=== PATIENT | female | born 1980 | race Caucasian/White ===

== ENCOUNTER → 2019-09-20 14:28 | Outpatient (REF) | payer OTHER, SELFPAY | LOC: ANHLAB 14:28 | PROVIDERS: PCP Internal Medicine; Visit Provider Nurse Practitioner Family | DX: D22.0 Melanocytic nevi of lip (principal); D22.39 Melanocytic nevi of other parts of face | CPT/HCPCS: 88305 ==

== ENCOUNTER 2022-06-16 13:07 | Emergency (ER) | payer OTHER, SELFPAY ==
[2022-06-16 13:19] VITALS: BP 140/80; PULSE 100; RESP 18; TEMP 36.6; O2SAT 100
--- NOTE | 2022-06-16 13:23 | ED.EAR ---
HPI - Ear Problem General Chief complaint: Ear Stated complaint: sorethroat,bilateral ear discomfort Time Seen by Provider: 06/16/22 13:24 Source: patient Mode of arrival: ambulatory Limitations: no limitations History of Present Illness HPI Narrative: 41 yo F presents with c/o sinus pressure, nasal congestion for 2 to 3 days. Afebrile. Not taking any OTC meds to treat symptoms. Had nose bleed yesterday while in shower and today blew nose and blood clot came out. States she has never had nose bleed so concerned her. pt is well appearing. afebrile. just have a lot of facial pain . All systems reviewed and negative except as noted above. Related Data Home Medications Medication Instructions Recorded Confirmed multivitamin 1 tablet PO DAILY 06/15/19 06/16/22 Allergies Allergy/AdvReac Type Severity Reaction Status Date / Time No Known Allergies Allergy Verified 06/16/22 13:10 Review of Systems Review of Systems: CONSTITUTIONAL: Denies fever, chills, or sweats. EYES: Denies visual changes, redness, or discharge. ENT: reports rhinorrhea, congestion, sinus pressure, sinus headache. Denies sore throat, or otalgia. CARDIOVASCULAR: Denies chest pain, palpitations, or edema. RESPIRATORY: Denies cough or dyspnea. GASTROINTESTINAL: Denies abdominal pain, nausea, vomiting, or diarrhea. GENITOURINARY: Denies dysuria or hematuria. SKIN: Denies rash or itching. MUSCULOSKELETAL: Denies back pain, joint pain, or myalgia. NEUROLOGIC: Denies headache, numbness, or weakness. PSYCHIATRIC: Denies anxiety or depression. All other systems reviewed are negative, except as documented in HPI. [facility] Past Medical History Medical History (Updated 06/16/22 @ 13:35 by Shira Espino NP) History of keloid of skin History of pulmonary embolism 2006 Family History Family History Father Hypertension Mother Cerebrovascular accident Social History Social History Smoking status: Never smoker Alcohol intake: current Substance use: never Comments At time of signature, agree with nursing past medical, surgical, social and family history. There is no relevant family history pertinent to the presenting complaint. Exam Narrative: GENERAL: This is a well-nourished, well-developed patient, in no apparent distress. patient is well-appearing. HEAD: normocephalic, atraumatic. EYES: PERRL. Sclera clear/white. Vision is grossly intact. EARS: External ears normal, auditory canals clear and without drainage, TMs normal without perforation. Hearing grossly intact. NOSE: External nose normal with no obvious nasal discharge, nares without redness, no rhinorrhea. THROAT: Mucous membranes moist, posterior pharynx clear. NECK: Neck supple, non-tender without lymphadenopathy, masses or thyromegaly. CARDIOVASCULAR: Regular rate and rhythm without murmurs, gallops, or rubs. RESPIRATORY: Clear to auscultation. Breath sounds equal bilaterally. No wheezes, rales, or rhonchi. SKIN: warm, Dry, intact with no suspicious lesions or rash, good texture and turgor. NEURO: awake, alert, and oriented to person, place and time. There were no obvious focal neurologic abnormalities. EXTREMITIES: No joint tenderness, effusion, or edema noted. Course Course Level of Care: Express Care Visit Vital Signs Vital signs: Vital Signs Temperature 36.6 C 06/16/22 13:19 Pulse Rate 100 06/16/22 13:19 Respiratory Rate 18 06/16/22 13:19 Blood Pressure 140/80 06/16/22 13:19 Pulse Oximetry 100 06/16/22 13:19 Oxygen Delivery Room Air 06/16/22 13:19 Temperature 36.6 C 06/16/22 13:19 Pulse Rate 100 06/16/22 13:19 Respiratory Rate 18 06/16/22 13:19 Blood Pressure 140/80 06/16/22 13:19 Pulse Oximetry 100 06/16/22 13:19 Oxygen Delivery Room Air 06/16/22 13:19 Reviewed Medical Decision Making MDM Narrati
== END 2022-06-16 13:40 | disposition home or self-care (01) ==
PROVIDERS: Emergency Provider Nurse Practitioner Family
DX: J01.90 Acute sinusitis, unspecified (principal); Z86.711 Personal history of pulmonary embolism
CPT/HCPCS: 99213; G0463

== ENCOUNTER 2022-06-30 08:02 | Emergency (ER) | payer OTHER, SELFPAY ==
[2022-06-30 08:15] VITALS: BP 130/71; PULSE 98; RESP 18; TEMP 36.1; O2SAT 100
--- NOTE | 2022-06-30 08:16 | ED.URI ---
HPI - URI/Sore Throat General Chief Complaint: Upper Respiratory Infection Stated Complaint: sorethroat Time Seen by Provider: 06/30/22 08:16 History of Present Illness HPI Narrative: Year old female presented for complaint of sore throat worsening since yesterday. Endorses painful swallow and headache. She denies shortness of breath, wheezing, nausea, vomiting, fevers or chills. She is maintaining her secretions. Endorses her daughter tested positive for strep 3 days ago. Not taking anything for symptoms. Related Data Home Medications Medication Instructions Recorded Confirmed multivitamin 1 tablet PO DAILY 06/15/19 06/30/22 Allergies Allergy/AdvReac Type Severity Reaction Status Date / Time No Known Allergies Allergy Verified 06/30/22 08:10 Review of Systems Review of Systems: CONSTITUTIONAL: Denies body aches, fever, chills, or sweats. EYES: Denies visual changes, redness, or discharge. ENT: Denies rhinorrhea, congestion, or otalgia. CARDIOVASCULAR: Denies chest pain, palpitations, or edema. RESPIRATORY: Denies dyspnea. GASTROINTESTINAL: Denies abdominal pain, nausea, vomiting, or diarrhea. SKIN: Denies rash, itching, or wounds. MUSCULOSKELETAL: Denies back pain, joint pain, or myalgia. [facility] Past Medical History Medical History (Updated 06/30/22 @ 08:24 by Monique Farley APRN) History of keloid of skin History of pulmonary embolism 2006 Family History Family History Father Hypertension Mother Cerebrovascular accident Social History Social History Smoking status: Never smoker Alcohol intake: current Substance use: never Exam Narrative: GENERAL: Mildly ill-appearing, no acute distress. EYES: conjunctivae clear ENT: Mucous membranes moist. TM pearly gutierrez with normal light reflex bilaterally; no tragal tenderness. Oropharynx erythematous without lesions. Tonsils enlarged 1+ without exudate. No drooling, no hoarseness, no trismus, uvula midline. No tripod positioning, hot potato voice, or soft palate swelling. NECK: Supple. No lymphadenopathy CHEST: Clear to auscultation, breath sounds equal. No respiratory distress, speaks in full sentences. HEART: Regular rate and rhythm. No murmur heard. SKIN: Warm, dry, no rash. NEURO: Alert and oriented x3. Course Course Emergency Course: Patient is aware of diagnosis, understands and agrees to treatment plan. Anticipatory guidance given. Patient agrees to follow-up as directed and is aware of reasons to seek care at the emergency department. Portions of this record may have been created with voice recognition software Level of Care: Express Care Visit MDM - URI/Sore Throat MDM Narrative Medical decision making narrative: strep result reviewed with pt. Advise supportive treatments. Patient is appropriate for outpatient treatment and follow-up. Differential Diagnosis Differential diagnosis: Likely upper respiratory infection, viral infection and pharyngitis Discharge Plan Discharge Clinical Impression: Pharyngitis Qualifiers: Pharyngitis/tonsillitis etiology: unspecified etiology Qualified Code(s): J02.9 - Acute pharyngitis, unspecified Patient Disposition: Home, Self-Care Condition: Stable Instructions: Antibiotic Form Additional Instructions: Rapid strep swab was negative today You will be notified in a few days if the culture comes back positive for strep, and appropriate antibiotics will be called in at that time. if symptoms are due to a viral illness, it is not treated with antibiotics. Viral symptoms can be present for up to 10-14 days. Recommend Flonase spray and Zyrtec for sinus congestion/drainage Tylenol every 8 hours as needed for pain/fever Soft foods, cool liquids, warm tea. Gargle with warm saltwater twice a day. Chloraseptic spray and throat lozenges. Rest and stay hydrated.
== END 2022-06-30 08:26 | disposition home or self-care (01) ==
PROVIDERS: Emergency Provider Nurse Practitioner Family; PCP Internal Medicine
DX: J02.9 Acute pharyngitis, unspecified (principal)
CPT/HCPCS: 87081; 87880; 99213; G0463

== ENCOUNTER 2022-07-19 08:29 | Emergency (ER) | payer OTHER, SELFPAY ==
[2022-07-19 09:16] VITALS: BP 150/79; PULSE 108; RESP 14; TEMP 36.8; O2SAT 100
--- NOTE | 2022-07-19 09:44 | ED.GENADULT ---
HPI - General Adult General Chief complaint: Upper Respiratory Infection Stated complaint: sorethroat,rt ear pain,headache Time Seen by Provider: 07/19/22 09:44 Source: patient Mode of arrival: ambulatory Limitations: no limitations History of Present Illness HPI narrative: Free[age] year old female patient presents to [facility] with complaints of throat, right ear pain and headache started yesterday. 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 Denies any body aches, fevers or chills. Denies any chest pain, shortness of breath. Related Data Home Medications Medication Instructions Recorded Confirmed multivitamin 1 tablet PO DAILY 06/15/19 07/19/22 Allergies Allergy/AdvReac Type Severity Reaction Status Date / Time No Known Allergies Allergy Verified 07/19/22 09:15 Review of Systems Review of Systems: CONSTITUTIONAL: Denies fever, chills, or sweats. EYES: Denies visual changes, redness, or discharge. ENT: Denies rhinorrhea, congestion, Positive sore throat, positive right otalgia. CARDIOVASCULAR: Denies chest pain, palpitations, or edema. RESPIRATORY: Denies cough or dyspnea. GASTROINTESTINAL: Denies abdominal pain, nausea, vomiting, or diarrhea. GENITOURINARY: Denies dysuria or hematuria. SKIN: Denies rash or itching. MUSCULOSKELETAL: Denies back pain, joint pain, or myalgia. NEUROLOGIC: positive headache, denies numbness, or weakness. PSYCHIATRIC: Denies anxiety or depression. [facility] Past Medical History Medical History (Updated 07/19/22 @ 09:48 by IRENA Nieves) History of keloid of skin History of pulmonary embolism 2006 Family History Family History Father Hypertension Mother Cerebrovascular accident Social History Social History Smoking status: Never smoker Alcohol intake: current Substance use: never Comments At the time of my signature I agree with nursing past medical history, surgical, social, and family history. There is no relevant family history pertinent to the presenting complaint. Exam Narrative: GENERAL: Well-appearing, well-nourished, and in no acute distress. HEAD: Normocephalic, atraumatic. EYES: PERRLA and EOMI. ENT: Nares with erythema edema noted bilaterally, no rhinorrhea or epistaxis. Mucous membranes moist. bilateral TMs are clear no erythema or foreign bodies to the canal. Posterior pharynx with erythema and slight swelling noted bilaterally. NECK: Supple. No lymphadenopathy CHEST: Clear to auscultation. No respiratory distress. HEART: Regular rate and rhythm. No murmur heard. Normal peripheral pulses. ABDOMEN: Soft, nontender, nondistended, normal active bowel sounds. EXTREMITIES: Normal range of motion. No edema. SKIN: Warm, dry, no rash. NEURO: No focal deficits. Alert and oriented x3. Course Course Level of Care: Express Care Visit Vital Signs Vital signs: Vital Signs Temperature 36.8 C 07/19/22 09:16 Pulse Rate 108 H 07/19/22 09:16 Respiratory Rate 14 07/19/22 09:16 Blood Pressure 150/79 H 07/19/22 09:16 Pulse Oximetry 100 07/19/22 09:16 Oxygen Delivery Room Air 07/19/22 09:16 Temperature 36.8 C 07/19/22 09:16 Pulse Rate 108 H 07/19/22 09:16 Respiratory Rate 14 07/19/22 09:16 Blood Pressure 150/79 H 07/19/22 09:16 Pulse Oximetry 100 07/19/22 09:16 Oxygen Delivery Room Air 07/19/22 09:16 vital signs reviewed The patient has been informed that they may have pre-hypertension or Hypertension based on a BP reading in the department. I recommend that the patient call the primary care provider listed on their discharge instructions or a physician of their choice this week to arrange follow up for further evaluation of possible pre-hypertension or Hypertension Medical Decision Making MDM Narrative Medical decision making narrative:
== END 2022-07-19 09:52 | disposition home or self-care (01) ==
PROVIDERS: Emergency Provider Nurse Practitioner Family; PCP Internal Medicine
DX: J02.0 Streptococcal pharyngitis (principal); Z86.711 Personal history of pulmonary embolism
CPT/HCPCS: 87880; 99213; G0463

== ENCOUNTER 2022-12-07 13:53 | Emergency (ER) | payer OTHER, SELFPAY ==
--- NOTE | ~2022-12-07 | XR_ITS ---
EXAMINATION: XR chest 2V DATE: 12/07/2022 14:31 INDICATION: Productive cough and fever TECHNIQUE: PA and lateral views of the chest are obtained. COMPARISON: 12/03/2016 FINDINGS: The lungs are free of acute opacities. No pleural effusion or pneumothorax. The cardiomedia stinal silhouette is normal. The visualized bones and soft tissues are unremarkable. IMPRESSION: 1. No acute cardiopulmonary abnormality. Reviewed, dictated and finalized at location A.
[2022-12-07 14:06] VITALS: BP 130/88; PULSE 109; RESP 20; TEMP 36.6; O2SAT 99
--- NOTE | 2022-12-07 14:14 | ED.URI ---
HPI - URI/Sore Throat General Chief Complaint: Upper Respiratory Infection Stated Complaint: cough Time Seen by Provider: 12/07/22 14:15 Source: patient and RN notes reviewed Mode of arrival: ambulatory Limitations: no limitations History of Present Illness HPI Narrative: 42-year-old female presents with concern for cough. Reports 1 week ago she tested positive for COVID. She reports she began coughing 2 days ago. She reports coughing fits that cause her to feel short of breath, she feels short of breath when she is exerting herself. She denies any new fevers since her cough began. She denies chest pain, chest tightness. MD elicited complaint: cough Related Data Allergies Allergy/AdvReac Type Severity Reaction Status Date / Time No Known Allergies Allergy Verified 07/19/22 09:15 Review of Systems Review of Systems: CONSTITUTIONAL: Denies malaise, chills, sweats, or fever. EYES: Denies visual changes, redness, or discharge. ENT: Reports rhinorrhea, congestion CARDIOVASCULAR: Denies chest pain, palpitations, or edema. RESPIRATORY: Reports cough, exertion dyspnea. GASTROINTESTINAL: Denies abdominal pain, nausea, vomiting, diarrhea SKIN: Denies rash or itching. MUSCULOSKELETAL: Denies myalgia. NEUROLOGIC: Denies headache. All systems reviewed & are unremarkable except as noted in HPI and below PMFSH Past Medical History Medical History (Updated 12/07/22 @ 14:50 by Charmaine Martinez NP) History of keloid of skin History of pulmonary embolism 2006 Family History Family History Father Hypertension Mother Cerebrovascular accident Social History Social History Smoking status: Never smoker Alcohol intake: current Substance use: never Comments At time of signature, agree with nursing past medical, surgical, social and family history. There is no relevant family history pertinent to the presenting complaint Exam Narrative: GENERAL: Well-appearing, well-nourished, and in no acute distress. HEAD: Normocephalic EYES: PERRLA, conjunctivae clear ENT: Nares clear, turbinates edematous and erythematous, clear discharge. Mucous membranes moist. TM pearly gutierrez with dull light reflex bilaterally; no tragal tenderness. Oropharynx not erythematous without lesions. Tonsils not enlarged and without exudate, no drooling, no hoarseness, no trismus, uvula midline. NECK: Supple. No lymphadenopathy CHEST: Clear to auscultation, breath sounds equal. No wheezing, rhonchi, rales, or stridor. No respiratory distress, speaks in full sentences. Cough noted HEART: Regular rate and rhythm. No murmur heard. SKIN: Warm, dry, no rash. NEURO: Alert and oriented x3. PSYCH: Normal mood and affect Course Course Emergency Course: Patient reports a history of pulmonary embolism 1999 that was caused by control pills. I discussed with patient that I cannot diagnose or rule out a pulmonary embolism from the Urgent Care, her chest x-ray is normal. She also does not have any chest pain, chest tightness like she did when she had a pulmonary embolism. Patient understands if she develops the symptoms she needs to seek evaluation in the emergency room. Patient is aware of diagnosis, understands and agrees to treatment plan. Anticipatory guidance given. Patient agrees to follow-up as directed and is aware of reasons to seek care at the emergency department. Portions of this record may have been created with voice recognition software Level of Care: Express Care Visit Vital Signs Vital signs: Vital Signs Temperature 97.8 F 12/07/22 14:06 Pulse Rate 109 H 12/07/22 14:06 Respiratory Rate 20 12/07/22 14:06 Blood Pressure 130/88 12/07/22 14:06 Pulse Oximetry 99 12/07/22 14:06 Oxygen Delivery Room Air 12/07/22 14:06 Temperature 97.8 F 12/07/22 14:06 Pulse Rate 109 H 12/07/22 14:06 Respiratory Rate 2
== END 2022-12-07 15:01 | disposition home or self-care (01) ==
PROVIDERS: Emergency Provider Nurse Practitioner
DX: J40 Bronchitis, not specified as acute or chronic (principal); Z86.711 Personal history of pulmonary embolism
CPT/HCPCS: 71046; 99213; G0463

== ENCOUNTER 2023-04-08 15:18 | Emergency (ER) | payer OTHER, SELFPAY ==
--- NOTE | ~2023-04-08 | XR_ITS ---
XR foot RT min 3V DATE: 04/08/2023 15:35 INDICATION: Tubal dropped on top of proximal foot. Pain. TECHNIQUE: 4 views COMPARISON: None FINDINGS: No fracture or dislocation, periosteal reaction or bone destruction, erosive change or othe r significant abnormality IMPRESSION: Negative Reviewed, dictated and finalized at location [facility] IMPRESSION: Negative
[2023-04-08 15:26] VITALS: BP 147/82; PULSE 92; RESP 18; TEMP 36.2; O2SAT 99
--- NOTE | 2023-04-08 15:26 | ED.LOWEXIN ---
HPI - Extremity Injury (Lower) General Chief Complaint: Extremity Injury, Lower Stated Complaint: Right Foot Injury Time Seen by Provider: 04/08/23 15:40 Source: patient and RN notes reviewed Mode of arrival: ambulatory Limitations: no limitations History of Present Illness HPI Narrative: 42-year-old female presents with concern for injury to the right foot. Reports yesterday a table dropped on her foot. Reports about half an hour after the injury it started hurt. Reports she has used compression and taken ibuprofen. She reports standing and walking increased the pain, bending her toes increases the pain. She denies decreased strength, sensation, range of motion MD complaint: foot injury Related Data Home Medications Medication Instructions Recorded Confirmed No Home Medications 04/08/23 04/08/23 Allergies Allergy/AdvReac Type Severity Reaction Status Date / Time No Known Allergies Allergy Verified 04/08/23 15:30 Review of Systems Review of Systems: CONSTITUTIONAL: Denies malaise, chills, sweats, or fever. SKIN: Denies rash or itching, open skin, laceration, abrasion, redness, warmth, swelling. MUSCULOSKELETAL: Reports right foot pain NEUROLOGIC: Denies numbness, weakness All systems reviewed & are unremarkable except as noted in HPI and below PMFSH Past Medical History Medical History (Updated 04/08/23 @ 15:48 by Charmaine Martinez NP) History of keloid of skin History of pulmonary embolism 2005 Family History Family History Father Hypertension Mother Cerebrovascular accident Social History Social History Smoking status: Never smoker Alcohol intake: current Substance use: never Comments At time of signature, agree with nursing past medical, surgical, social and family history. There is no relevant family history pertinent to the presenting complaint Exam Narrative: GENERAL: Well-appearing, well-nourished, and in no acute distress. HEAD: Normocephalic, atraumatic. EYES: PERRLA, conjunctivae clear NECK: Supple. CHEST: Speaks in full sentences. No respiratory distress. HEART: Regular rate and rhythm. Normal and equal peripheral pulses. EXTREMITIES: Right foot and digits have grossly normal strength and sensation, normal range of motion. No edema. Dorsal ecchymosis noted. Normal sensation with sensitivity to light touch and pain. Dorsal tenderness. No open wounds, no skin tenting, no devitalized tissue or atrophy, no trophic changes, no obvious deformity, alignment normal, nearby joints and structures intact. Distal pulses palpable and equal bilaterally, skin warm, dry, pink. Capillary refill less than 3 seconds. SKIN: Warm, dry, no rash. NEURO: Alert and oriented x3. PSYCH: Normal mood and affect Course Course Emergency Course: Patient is aware of diagnosis, understands and agrees to treatment plan. Anticipatory guidance given. Patient agrees to follow-up as directed and is aware of reasons to seek care at the emergency department. Portions of this record may have been created with voice recognition software Level of Care: Express Care Visit Vital Signs Vital signs: Reviewed. MDM - Extremity Injury (Lower) MDM Narrative Medical decision making narrative: Patients injury and pain is consistent with musculoskeletal etiology. No signs of neurological or vascular compromise on exam. Compartments and tissues are soft without signs of compartment syndrome. Pain is felt appropriate for further evaluation on an outpatient basis. Imaging Data My impression: Images reviewed, interpreted by radiologist, agree, see report. Radiologist's impression: XR foot RT min 3V DATE: 04/08/2023 15:35 INDICATION: Tubal dropped on top of proximal foot. Pain.? TECHNIQUE: 4 views? COMPARISON: None? FINDINGS: No fracture or dislocation, periosteal reaction or bone destruction,
== END 2023-04-08 15:54 | disposition home or self-care (01) ==
PROVIDERS: Emergency Provider Nurse Practitioner
DX: S90.31XA Contusion of right foot, initial encounter (principal); W20.8XXA Other cause of strike by thrown, projected or falling object, initial encounter; Z86.711 Personal history of pulmonary embolism
CPT/HCPCS: 73630; 99213; G0463

== ENCOUNTER 2023-07-26 17:16 | Emergency (ER) | payer OTHER, SELFPAY ==
--- NOTE | 2023-07-26 17:20 | ED.URI ---
HPI - URI/Sore Throat General Chief Complaint: Upper Respiratory Infection Stated Complaint: Upper Respiratory Time Seen by Provider: 07/26/23 17:50 Source: patient and RN notes reviewed Mode of arrival: ambulatory Limitations: no limitations History of Present Illness HPI Narrative: 42-year-old female presents concern for 1 day history of fever, sore throat, bilateral ear pain, cough, eyes aching and burning. 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 She has been taking DayQuil and NyQuil along with ibuprofen MD elicited complaint: sore throat Related Data Home Medications Medication Instructions Recorded Confirmed No Home Medications 04/08/23 07/26/23 Allergies Allergy/AdvReac Type Severity Reaction Status Date / Time No Known Allergies Allergy Verified 07/26/23 17:36 Review of Systems Review of Systems: CONSTITUTIONAL: Reports malaise, fever. EYES: Denies visual changes, redness, or discharge. ENT: Reports otalgia and sore throat. CARDIOVASCULAR: Denies chest pain, palpitations, or edema. RESPIRATORY: Reports cough. Denies dyspnea. GASTROINTESTINAL: Denies abdominal pain, nausea, vomiting, diarrhea SKIN: Denies rash or itching. MUSCULOSKELETAL: Reports myalgia. NEUROLOGIC: Denies headache. All systems reviewed & are unremarkable except as noted in HPI and below PMFSH Past Medical History Medical History (Updated 07/26/23 @ 18:01 by Charmaine Martinez NP) History of keloid of skin History of pulmonary embolism 2006 Family History Family History Father Hypertension Mother Cerebrovascular accident Social History Social History Smoking status: Never smoker Alcohol intake: current Substance use: never Comments At time of signature, agree with nursing past medical, surgical, social and family history. There is no relevant family history pertinent to the presenting complaint Exam Narrative: GENERAL: Nontoxic-appearing, well-nourished, and in no acute distress. HEAD: Normocephalic EYES: PERRLA, conjunctivae clear ENT: Nares clear, turbinates edematous and erythematous, clear discharge. Mucous membranes moist. TM pearly gutierrez with dull light reflex bilaterally; no tragal tenderness. Oropharynx not erythematous without lesions. Tonsils not enlarged and without exudate, no drooling, no hoarseness, no trismus, uvula midline. NECK: Supple. No lymphadenopathy CHEST: Clear to auscultation, breath sounds equal. No wheezing, rhonchi, rales, or stridor. No respiratory distress, speaks in full sentences. HEART: Regular rate and rhythm. No murmur heard. SKIN: Warm, dry, no rash. NEURO: Alert and oriented x3. PSYCH: Normal mood and affect Course Course Emergency Course: Patient is aware of diagnosis, understands and agrees to treatment plan. Anticipatory guidance given. Patient agrees to follow-up as directed and is aware of reasons to seek care at the emergency department. Portions of this record may have been created with voice recognition software Level of Care: Express Care Visit Vital Signs Vital signs: Reviewed. MDM - URI/Sore Throat MDM Narrative Medical decision making narrative: Differential diagnosis considered: Mejia virus, strep pharyngitis, allergic rhinitis, upper respiratory tract infection, sinusitis, rhinosinusitis, nasopharyngitis. viral pharyngitis, otitis media, otitis externa, pneumonia, bronchitis, viral cough syndrome, viral syndrome, and influenza. Exam findings show no acute concerns or changes; patient is non-toxic appearing and is in no distress. Patient is appropriate for outpatient treatment and follow-up. Lab Data Attestation: I reviewed the patient's lab results. Critical Care Time Critical Care Time Critical Care Time: No Discharge Plan Discharge Clinical Impression: Acute viral syndrome Patient Disposition: Home, Self-Care Condition: Stable
[2023-07-26 17:32] VITALS: BP 140/88; PULSE 104; RESP 18; TEMP 36.9; O2SAT 99
== END 2023-07-26 18:05 | disposition home or self-care (01) ==
PROVIDERS: Emergency Provider Nurse Practitioner
DX: B34.9 Viral infection, unspecified (principal); Z20.822 Contact with and (suspected) exposure to COVID-19; Z86.711 Personal history of pulmonary embolism
CPT/HCPCS: 87081; 87426; 87804; 87880; 99213; G0463

== ENCOUNTER 2024-01-22 15:27 | Emergency (ER) | payer OTHER, SELFPAY ==
[2024-01-22 15:38] VITALS: BP 135/75; PULSE 98; RESP 16; TEMP 36.6; O2SAT 98
--- NOTE | 2024-01-22 15:38 | ED.GENADULT ---
HPI - General Adult General Chief complaint: Skin/Abscess/Foreign Body Stated complaint: rash around waist Time Seen by Provider: 01/22/24 15:39 Source: patient Mode of arrival: ambulatory Limitations: no limitations History of Present Illness HPI narrative: 43-year-old female patient presents to the [facility] with complaints of a rash to the left lower back for the past 2-3 days. Patient states that rash is itchy and burning denies any fevers body aches or chills. Patient states earlier in the week she started having congestion runny nose and thought she was starting to get sick so she did take some Zicam. Related Data Allergies Allergy/AdvReac Type Severity Reaction Status Date / Time No Known Allergies Allergy Verified 01/22/24 15:32 Review of Systems Review of Systems: CONSTITUTIONAL: Denies fever, chills, or sweats. EYES: Denies visual changes, redness, or discharge. ENT: Denies rhinorrhea, congestion, sore throat, or otalgia. CARDIOVASCULAR: Denies chest pain, palpitations, or edema. RESPIRATORY: Denies cough or dyspnea. GASTROINTESTINAL: Denies abdominal pain, nausea, vomiting, or diarrhea. GENITOURINARY: Denies dysuria or hematuria. SKIN: Positive rash with itching. MUSCULOSKELETAL: Denies back pain, joint pain, or myalgia. NEUROLOGIC: Denies headache, numbness, or weakness. PSYCHIATRIC: Denies anxiety or depression. [facility] Past Medical History Medical History History of keloid of skin History of pulmonary embolism 2006 Family History Family History Father Hypertension Mother Cerebrovascular accident Social History Social History Smoking status: Never smoker Alcohol intake: current Substance use: never Comments At the time of my signature I agree with nursing past medical history, surgical, social, and family history. There is no relevant family history pertinent to the presenting complaint. Exam Narrative: GENERAL: Well-appearing, well-nourished, and in no acute distress. HEAD: Normocephalic, atraumatic. EYES: PERRLA and EOMI. ENT: Nares clear, no rhinorrhea or epistaxis. Mucous membranes moist. NECK: Supple. No lymphadenopathy CHEST: Clear to auscultation. No respiratory distress. HEART: Regular rate and rhythm. No murmur heard. Normal peripheral pulses. ABDOMEN: Soft, nontender, nondistended, normal active bowel sounds. EXTREMITIES: Normal range of motion. No edema. SKIN: Warm, dry, patient has a papular rash no blistering noted as noted but the rash does go along a dermatome along the left lower back that goes along into the flank area. No rash anywhere else on the body does not cross midline. NEURO: No focal deficits. Alert and oriented x3. Course Course Level of Care: Express Care Visit Vital Signs Vital signs: Vital Signs Temperature 36.6 C 01/22/24 15:38 Pulse Rate 98 01/22/24 15:38 Respiratory Rate 16 01/22/24 15:38 Blood Pressure 135/75 01/22/24 15:38 Pulse Oximetry 98 01/22/24 15:38 Oxygen Delivery Room Air 01/22/24 15:38 Temperature 36.6 C 01/22/24 15:38 Pulse Rate 98 01/22/24 15:38 Respiratory Rate 16 01/22/24 15:38 Blood Pressure 135/75 01/22/24 15:38 Pulse Oximetry 98 01/22/24 15:38 Oxygen Delivery Room Air 01/22/24 15:38 vital signs reviewed. Medical Decision Making MDM Narrative Medical decision making narrative: Plan of care for patient is discharge home with antiviral due to highly suspected shingles rash along the left waist. Discussed with patient she can take [id number] antihistamines and Benadryl to help with the itching. May take Tylenol ibuprofen for any pain. Differential Diagnosis Differential Diagnosis: Differential diagnosis: Contact dermatitis, poison andrea, poison sumac, psoriasis, eczema, allergic reaction, drug
== END 2024-01-22 15:59 | disposition home or self-care (01) ==
PROVIDERS: Emergency Provider Nurse Practitioner Family; Referring Provider Emergency Medicine
DX: B02.9 Zoster without complications (principal); Z86.711 Personal history of pulmonary embolism
CPT/HCPCS: 99213; G0463

== ENCOUNTER 2024-02-04 09:58 | Emergency (ER) | payer OTHER, SELFPAY ==
--- NOTE | 2024-02-04 10:13 | ED_ITS ---
HPI - URI/Sore Throat General Chief Complaint: Upper Respiratory Infection Stated Complaint: sore throat , Bilateral Ear Pain Time Seen by Provider: 02/04/24 10:34 Source: patient, RN notes reviewed and old records reviewed Mode of arrival: ambulatory Limitations: no limitations History of Present Illness HPI Narrative: 43-year-old female presents to the [facility] with complaints of bilateral ear pain, cough and a sore throat x 2 days. Has tried [id number] cold medicine. Onset (ago): day(s) (2) Related Data Home Medications Medication Instructions Recorded Confirmed No Home Medications 02/04/24 02/04/24 Allergies Allergy/AdvReac Type Severity Reaction Status Date / Time No Known Allergies Allergy Verified 02/04/24 10:12 Review of Systems Review of Systems: All systems reviewed & are unremarkable except as noted in HPI and below Constitutional: Constitutional: Reports no additional constitutional complaints ENT: Reports as per HPI, Reports nasal congestion and Reports sore throat Cardiovascular: Cardiovascular: Reports no additional cardiovascular co mplaints, Denies chest pain and Denies dyspnea Respiratory: Respiratory: Reports as per HPI, Denies chest congestion, Reports cough and Denies dyspnea Gastrointestinal: Gastrointestinal: Reports no additional gastrointestinal complaints, Denies abdominal pain, Denies nausea and Denies vomiting Musculoskeletal: Musculoskeletal: Reports no additional musculoskeletal complaints Integumentary/Breasts: Skin/Breast: Reports system reviewed and no additional complaints, except as docu PMFSH Past Medical History Medical History (Updated 02/04/24 @ 12:13 by Charmaine Khoury APRN) History of keloid of skin History of pulmonary embolism 2006 Family History Family History Father Hypertension Mother Cerebrovascular accident Social History Social History Smoking status: Never smoker Alcohol intake: current Substance use: never Comments At the time of my signature, I reviewed and agree with the nursing past medical, surgical, social, and family history. There is no relevant family history pertinent to the patient complaint. Exam Const: General: cooperative, healthy appearing, comfortable, no acute distress, well developed, alert and well nourished Nutritional Appearance: well nourished Orientation/consciousness: patient oriented x3 Limitations: no limitations HENMT: Head: normal to inspection Ears: hearing grossly normal bilaterally, external ears normal and TM abnormal bulging on the right and with fluid behind the TM bilateral; not erythematous Face/Nose/Sinus: Normal external nose present, normal facial exam and face symmetric Face and sinus: normal facial exam and face symmetric Mouth: Yes Normal oral and palatal mucosa present, Yes lip normal and Yes tongue normal Throat: tonsils normal, uvula midline, postnasal drainage and no uvular edema Eyes: General: appearance normal, both eyes and all related structures Alignment and Position: alignment normal Periorbital: periorbital findings normal Eyelids: eyelids normal Neck: Neck: normal visual inspection, full ROM, no lymphadenopathy and no meningeal signs Chest: Chest palpation & inspection: normal inspection of the chest Resp: Effort & Inspection: normal respiratory effort, able to speak in complete sentences and Actively coughing dry Auscultation: clear to auscultation bilaterally, no crackles, no rales, no rhonchi and no wheezes Cardio: Rate: regular rate Skin: General skin exam: normal color and no rashes or lesions noted Lesions: no lesions Rashes: no rashes Wounds: no wounds Neuro: General: patient oriented x3, gait normal, tone normal, moves all extremities and no meningeal signs Cognition (Neuro): normal cognition Speech: normal speech Gait exam (Neuro): Normal gait present Extrem: General: normal to inspection, full ROM, capillary refill normal and normal gait Psych: Appearance: grossly normal and well kempt Mental Status: mental status grossly normal Speech and movement: Normal speech and movement present and Clear speech present Affect: normal affect Attitude: cooperative Course Course Level of Care: Express Care Visit Vital Signs Vital signs: Vital Signs Temperature 98.2 F 02/04/24 10:24 Pulse Rate 104 H 02/04/24 10:24 Respiratory Rate 18 02/04/24 10:24 Blood Pressure 140/95 H 02/04/24 10:24 Pulse Oximetry 100 02/04/24 10:24 Oxygen Delivery Room Air 02/04/24 10:24 Temperature 98.2 F 02/04/24 10:24 Pulse Rate 104 H 02/04/24 10:24 Respiratory Rate 18 02/04/24 10:24 Blood Pressure 140/95 H 02/04/24 10:24 Pulse Oximetry 100 02/04/24 10:24 Oxygen Delivery Room Air 02/04/24 10:24 Reviewed MDM - URI/Sore Throat MDM Narrative Medical decision making narrative: Patient sitting comfortably in exam room. Nontoxic, vitals stable. Patient in no acute distress Patient presents with 2 day history of sore throat, URI symptoms Strep test is negative, will culture No acute findings other than postnasal drainage, fluid, clear behind bilateral TMs. Patient is appropriate for outpatient treatment of viral URI with close follow- up Discharge instructions reviewed with patient, as well as provided in writing per nursing staff. The instructions also include specific and strict return/GO TO THE ER as well as f/u information. All questions have been answered, and the patient deny any further questions with discharge and discharge plan. Some parts of this dictation were generated by voice recognition software and may contain typographical and/or grammatical inaccuracies. Differential Diagnosis Differential diagnosis: Likely upper respiratory infection, otitis media, sinusitis, viral infection, bronchitis, influenza and pharyngitis Lab Data Labs: Lab Results 02/04/24 Range/Units 10:35 POC Grp A Strep Screen Negative (Negative) Reviewed Critical Care Time Critical Care Time Critical Care Time: No Discharge Plan Discharge Clinical Impression: Upper respiratory infection, Acute serous otitis media, bilateral, Acute viral pharyngitis Patient Disposition: Home, Self-Care Condition: Stable Instructions: Antibiotic Form, Pharyngitis (ED), Upper Respiratory Infection (ED), Fluid In The Ear (Serous Otitis Media) (ED), Postnasal Drip (DC) Additional Instructions: Your rapid strep swab was negative today at [facility]. A throat culture will be sent to the laboratory for further testing. If the test is positive, you will receive a phone call within 48 hours and an appropriate antibiotic will be initiated at that time. Your symptoms are likely due to a viral illness, which is not treated with antibiotics. Virus is typically last approximately 7 days, mild symptoms can linger for several weeks -Alternate Tylenol and Motrin per package directions for fever or pain. -Antihistamine medication such as Benadryl at night and Zyrtec/Claritin/Regine during the day can help improve symptoms. -doing daily nasal irrigations can help relieve pressure your sinuses. Things like a Neti pot -Use Flonase twice a day for 5 days then daily to help reduce the inflammation and dry up your sinuses. -You can also use Sudafed or Mucinex. Be sure to drink plenty of water with these medications at least 8 ounces with every dose and it is important to drink 8 to 10 glasses of water per day. Water is a natural decongestant -Eat and drink things that are easy to swallow, like tea or soup, or popsicles. -Oral rinses such as: Salt water gargles and/or may use topical anesthetic (eg. Chloraseptic spray) or lozenges to relieve dryness or throat pain). -Frequent hand washing or hand middle stitcher is one of the best ways to prevent spread of infection. -Using a vaporizer or humidifier at night will also help thin secretions and help with coughing up phlegm. -Follow up with primary care provider in 7-10 days if condition is not improving - For new or worsening symptoms go directly to the nearest ER Patient Language: Congolese Prescriptions: No Action No Home Medications Follow-up/Referrals: Aidan Dave DO [Physician] - PHYSICIAN,V BELT FINISHER [Primary Care Provider] - Stand Alone Forms: Work/School Release IP Time of Disposition: 10:44
[2024-02-04 10:24] VITALS: BP 140/95; PULSE 104; RESP 18; TEMP 36.8; O2SAT 100
[2024-02-04 10:37] LABS: EDSTREPNEGPOS1 Negative (Negative)
== END 2024-02-04 10:45 | disposition home or self-care (01) ==
PROVIDERS: Emergency Provider Nurse Practitioner
DX: J06.9 Acute upper respiratory infection, unspecified (principal); H65.03 Acute serous otitis media, bilateral; J02.8 Acute pharyngitis due to other specified organisms; Z86.711 Personal history of pulmonary embolism
CPT/HCPCS: 87081; 87880; 99213; G0463

== ENCOUNTER 2024-02-20 16:12 | Emergency (ER) | payer OTHER, SELFPAY ==
--- NOTE | 2024-02-20 16:26 | ED_ITS ---
HPI - Eye Problem General Chief complaint: Eye Problems Stated complaint: RT Eye injury Time Seen by Provider: 02/20/24 17:02 Source: patient, RN notes reviewed and old records reviewed Mode of arrival: ambulatory Limitations: no limitations History of Present Illness HPI Narrative: 43-year-old female presents to the [facility] with right eye redness. Denies any injury. Vision is unchanged. Denies wearing contact lenses. Discussed scribe's it is being very itchy and watery. Related Data Allergies Allergy/AdvReac Type Severity Reaction Status Date / Time No Known Allergies Allergy Verified 02/20/24 16:24 Review of Systems Review of Systems: All systems reviewed & are unremarkable except as noted in HPI and below Constitutional: Constitutional: Reports no additional constitutional complaints Eyes: Eyes: Reports as per HPI ENT: Reports system reviewed and no additional complaints, except as documented Cardiovascular: Cardiovascular: Reports no additional cardiovascular complaints, Denies chest pain and Denies dyspnea Respiratory: Respiratory: Reports no additional respiratory complaints, Denies chest congestion, Denies cough and Denies dyspnea Gastrointestinal: Gastrointestinal: Reports no additional gastrointestinal complaints, Denies abdominal pain, Denies nausea and Denies vomiting Musculoskeletal: Musculoskeletal: Reports no additional musculoskeletal complaints Integumentary/Breasts: Skin/Breast: Reports system reviewed and no additional complaints, except as docu PMFSH Past Medical History Medical History History of keloid of skin History of pulmonary embolism 2006 Family History Family History Father Hypertension Mother Cerebrovascular accident Social History Social History Smoking status: Never smoker Alcohol intake: current Substance use: never Comments At the time of my signature, I reviewed and agree with the nursing past medical, surgical, social, and family history. There is no relevant family history pertinent to the patient complaint. Exam Const: General: cooperative, healthy appearing, comfortable, no acute distress, well developed, alert and well nourished Nutritional Appearance: well nourished Orientation/consciousness: patient oriented x3 Limitations: no limitations HENMT: Head: normal to inspection Ears: hearing grossly normal bilaterally, external ears normal, TM's normal bilaterally, EAC's normal, mastoids normal and no periauricular adenopathy Face/Nose/Sinus: Normal external nose present, normal facial exam and face symmetric Face and sinus: normal facial exam and face symmetric Mouth: Yes Normal oral and palatal mucosa present, Yes lip normal and Yes tongue normal Eyes: General: appearance normal, both eyes and all related structures Alignment and Position: alignment normal Periorbital: periorbital findings normal Eyelids: eyelids normal Conjunctivae: conjunctivae normal Neck: Neck: normal visual inspection, full ROM, no lymphadenopathy and no meningeal signs Chest: Chest palpation & inspection: normal inspection of the chest Resp: Effort & Inspection: normal respiratory effort and able to speak in complete sentences Auscultation: clear to auscultation bilaterally, no crackles, no rales, no rhonchi and no wheezes Cardio: Rate: regular rate Skin: General skin exam: normal color and no rashes or lesions noted Lesions: no lesions Rashes: no rashes Wounds: no wounds Neuro: General: patient oriented x3, gait normal, tone normal, moves all extremities and no meningeal signs Cognition (Neuro): normal cognition Speech: normal speech Gait exam (Neuro): Normal gait present Extrem: General: normal to inspection, full ROM, capillary refill normal and normal gait Psych: Appearance: grossly normal and well kempt Mental Status: mental status grossly normal Speech and movement: Normal speech and movement present and Clear speech present Affect: normal affect Attitude: cooperative Course Course Level of Care: Express Care Visit Vital Signs Vital signs: Vital Signs Temperature 97.0 F L 02/20/24 16:45 Pulse Rate 94 02/20/24 16:45 Respiratory Rate 16 02/20/24 16:45 Blood Pressure 136/70 02/20/24 16:45 Pulse Oximetry 100 02/20/24 16:45 Oxygen Delivery Room Air 02/20/24 16:45 Temperature 97.0 F L 02/20/24 16:45 Pulse Rate 94 02/20/24 16:45 Respiratory Rate 16 02/20/24 16:45 Blood Pressure 136/70 02/20/24 16:45 Pulse Oximetry 100 02/20/24 16:45 Oxygen Delivery Room Air 02/20/24 16:45 Reviewed MDM - Eye Problem MDM Narrative Medical decision making narrative: Patient sitting comfortably in exam room. Nontoxic, vitals stable. Patient in no acute distress. Patient is concerned for conjunctivitis. No inflammation noted to the conjunctiva. Patient describes as being very itchy and irritated. No visual changes or trauma. Patient appropriate for outpatient treatment and follow-up Discharge instructions reviewed with patient, as well as provided in writing per nursing staff. The instructions also include specific and strict return/GO TO THE ER as well as f/u information. All questions have been answered, and the patient deny any further questions with discharge and discharge plan. Some parts of this dictation were generated by voice recognition software and may contain typographical and/or grammatical inaccuracies. Differential Diagnosis Differential diagnosis: Likely corneal abrasion, conjunctivitis and subconjunctival hemorrhage Critical Care Time Critical Care Time Critical Care Time: No Discharge Plan Discharge Clinical Impression: Irritation of right eye Patient Disposition: Home, Self-Care Condition: Stable Instructions: Antibiotic Form, Erythromycin (Into the eye) Additional Instructions: Apply a cool, damp compress to your affected eye. Be sure to use a clean cloth each time. Gently clean your eyes with wet cotton balls or pads to remove crusty buildup or irritating discharge. Use eye ointment as prescribed you can also use non-medicated artificial tears, available without a prescription. Maintain good hygiene and only touch your eyes with freshly washed hands. You should follow-up with an eye doctor within the next 72 hours [facility]: [place]- [phone] [facility] [phone] [facility] [phone] [place]: [facility] [phone] or [phone] [facility] [phone] [facility] [phone] [facility] [phone] [facility]- [phone] Patient Language: French Prescriptions: New erythromycin 5 mg/gram (0.5 %) ointment 0.5 inch RIGHT EYE TID Qty: 3.5 0RF Follow-up/Referrals: Tootie Lopes DO [Physician] - PHYSICIAN,MATERIALS COORDINATOR [Primary Care Provider] - Stand Alone Forms: Work/School Release IP Time of Disposition: 17:15
[2024-02-20 16:45] VITALS: BP 136/70; PULSE 94; RESP 16; TEMP 36.1; O2SAT 100
== END 2024-02-20 17:16 | disposition home or self-care (01) ==
PROVIDERS: Emergency Provider Nurse Practitioner
DX: H57.89 Other specified disorders of eye and adnexa (principal); Z86.711 Personal history of pulmonary embolism
CPT/HCPCS: 99213; G0463

== ENCOUNTER 2024-12-01 18:21 | Emergency (ER) | payer OTHER, SELFPAY ==
--- OUTSIDE RECORDS SUMMARY | 2017-01-26 09:43 | XMS_ITS | Continuity of Care Document ---
Author Organization [facility] Address [address] [place] [address] Phone Care Team Providers Care Sub Master Name Role Phone Bonifacio Leblanc MD Unavailable Unavailable Allergies, Adverse Reactions, Alerts Substance Reaction Status Criticality No Known Allergies Active No Inform ation Medications Medication Instructions Dosage Effective Dates (start - stop) Status Comments No Drug Therapy Prescribed Procedures Procedure Date PREV VISIT, EST, AGE 18-39 OFFICE/OUTPATIENT VISIT, EST PREV VISIT, EST, AGE 18-39 OFFICE/OUTPATIENT VISIT, EST OFFICE/OUTPATIENT VISIT, EST PREV VISIT, EST, AGE 18-39 OFFICE/OUTPATIENT VISIT, EST OFFICE/OUTPATIENT VISIT, EST OFFICE/OUTPATIENT VISIT, EST Advance Directives Directive Yes / No Effective Date File Name No Information Encounters Encounter Description Practice Location Reason(s) For Visit Diagnoses Date Provider Providers Copied on Encounter [facility], [address] [place], [place], [address], [place] tel:[phone] [facility] No Information 7 Benji Valdovinos. [address] [facility] [place], [address] , [place]. tel:[phone] Referring Provider: Bonifacio Leblanc, [address] [facility] [address], [place], [place], [address]. tel:[phone] PREV VISIT, EST, AGE 18-39 [facility], [address] [place], [address], [place] tel:[phone] [facility] Medicine PHysical (chief complaint) Encounter for general adult medical exam w abnormal findingsAbnormal weight gainAcute bronchitisHyperlip idemia 7 Benji Valdovinos. [address], [place], [place], [address] , [place]. [phone] Referring Provider: Joel Terry [address], [place], [place], [address]. tel:[phone] PREV VISIT, EST, AGE 18-39 [facility], [address], [place], [place], [address], [place] tel:[phone] [facility] Medicine PHysical (chief complaint) Dietary surveillance and counselingRoutine Medical ExamEnlargement of lymph nodesOther and unspecified hyperlipidemiaRout ine Medical Exam Nov-0 4 Benji Valdovinos. [address], [place], [place], [address] , [place]. [phone] Referring Provider: Joel Terry [address], [place], [place], [address]. tel:[phone] OFFICE/OUTPA TIENT VISIT, EST [facility], [address], [place], [place], [address], [place] tel:[phone] [facility] cellulitis (chief complaint) Cellulitis and abscess of foot, except toes 4 Benji Valdovinos. [address], [place], [place], [address] , [place]. [phone] Referring Provider: Joel Terry [address], [place], [place], [address]. tel:[phone] PREV VISIT, EST, AGE 18-39 [facility], [address], [place], [place], [address], [place] tel:[phone] [facility] eye irritation (chief complaint)P hysical (chief complaint) Dietary surveillance and counselingRoutine Medical ExamOther and unspecified hyperlipidemiaHype rtension, UnspecifiedAcute conjunctivitis, unspecifiedRoutine Medical Exam 3 Benji Valdovinos. [address], [place], [place], [address] , [place]. tel:[phone] Referring Provider: Bonifacio Leblanc [address], [place], [place], [address]. tel:[phone] OFFICE/OUTPA TIENT VISIT, [facility], [address], [place], [place], [address], [place] tel:[phone] [facility] chest pain (chief complaint) Chest Pain, UnspecifiedPleuris y without mention of effusion or current tuberculosis 2 Benji Valdovinos. [address], [place], [place], [address] , [place]. tel:[phone] Referring Provider: Joel Teryr [address], [place], [place], [address]. tel:[phone] OFFICE/OUTPA TIENT VISIT, [facility], [address], [place], [place], [address], [place] tel:[phone] [facility] URI (chief complaint) Acute upper respiratory infections of other multiple sites 2 Benji Valdovinos. [address], [place], [place], [address] , [place]. tel:[phone] Referring Provider: Joel Terry [address], [place], [place], [address]. tel:[phone] Family History Family Member Type Diagnosis Age At Onset Father Problem (finding) Hyperlipidemia Brother Problem (finding) Alive and well Mother Problem (finding) Alive and well Payers Payer name Insurance type Covered constitution party ID Authoriza tion(s) No Information Social History Type Description Quantity Date Captured Comments Alcohol Use Details Unknown Caffeine Use Details Unknown Tobacco Use Status No Information Smoking Status No Information Sex Female Chief Complaint And Reason For Visit No Information Plan Of Treatment Date Type Action Status Goal Depression screening. Due on due Goal Pap/HPV testing. Due on due Goal Td vaccine. Due on 17 due Goal Tdap. Due on due History Of Present Illness Encounter Date Complaint History Of Prese nt Illness PHysical Pt needs annual physical. Pt needs work physical. pt is in good health pt denies any chest pain or night sweat fever. Pt recenlty was seen at urgent care for acute bronchitis. pt had chset xray done which showed mild hyperinflation. pt still has mild dry cough and she has some sinus drainage but overall much better Pt also has history of HLP Pt has not done lab. Pt has gained 30 pounds during last 5 years Pt does not exercise and she drinks some sweet drinks. Pt denies any other complaints Medications Administered Medication Instructions Dosage Effective Dates (start - stop) Status Comments No Drug Therapy Prescribed Instructions Date Instruction Additional Infor mation Prescribed Activity and Exercise Education Related to Dietary Surveillance and Counseling Prescribed Diet Educ ation/Lifestyle Education Regarding Diet Related to Dietary Surveillance and Counseling Increase physical activity Relat ed to Encounter for general adult medical exam w abnormal findings Weight management Related to Enc ounter for general adult medical exam w abnormal findings Dietary counseling Related to Di etary surveillance counseling Decrease caloric intake Related to Dietary surveillance counseling Dietary counseling Related to Di etary surveillance counseling Decrease caloric intake Related to Dietary surveillance counseling adequate rest and fluid Related to Acute upper respiratory infections of other multip Assessments Type Assessment Date No Information
--- OUTSIDE RECORDS SUMMARY | 2017-01-26 09:43 | XMS_ITS | Continuity of Care Document ---
Author Organization [facility] Address [address] [place] [address] Phone Care Team Providers Care Bellows Assembler Name Role Phone Bonifacio Leblanc MD Unavailable [...] Diagnoses Date Provider Providers Copied on Encounter [facility], [address] [place] [place], [place], [address], [place] tel:[phone] [facility] No Information 7 Benji Valdovinos. [address] [facility] [place], [address] , [place]. tel:[phone] Referring Provider: Bonifacio Leblanc, [address] [facility] [address], [place], [place], [address]. tel:[phone] PREV VISIT, EST, AGE 18-39 [facility], [address] [place], [address], [place] tel:[phone] [facility] Medicine PHysical (chief complaint) Encounter for general adult medical exam w abnormal findingsAbnormal weight gainAcute bronchitisHyperlip idemia 7 Benji Valdovinos. [address], [place], [place], [address] , [place]. [phone] Referring Provider: Joel Terry [address], [place], [place], [address]. tel:[phone] PREV VISIT, EST, AGE 18-39 [facility], [address], [place], [place], [address], [place] tel:[phone] [facility] Medicine PHysical (chief complaint) Dietary surveillance and counselingRoutine Medical ExamEnlargement of lymph nodesOther and unspecified hyperlipidemiaRout ine Medical Exam Nov-0 4 Benji Valdovinos. [address], [place], [place], [address] , [place]. [phone] Referring Provider: Joel Terry [address], [place], [place], [address]. tel:[phone] OFFICE/OUTPA TIENT VISIT, EST [facility], [address], [place], [place], [address], [place] tel:[phone] [facility] cellulitis (chief complaint) Cellulitis and abscess of foot, except toes 4 Benji Valdovinos. [address], [place], [place], [address] , [place]. [phone] Referring Provider: Joel Terry [address], [place], [place], [address]. tel:[phone] PREV VISIT, EST, AGE 18-39 [facility], [address], [place], [place], [address], [place] tel:[phone] [facility] eye irritation (chief complaint)P hysical (chief complaint) Dietary surveillance and counselingRoutine Medical ExamOther and unspecified hyperlipidemiaHype rtension, UnspecifiedAcute conjunctivitis, unspecifiedRoutine Medical Exam 3 Benji Valdovinos. [address], [place], [place], [address] , [place]. tel:[phone] Referring Provider: Bonifacio Leblanc [address], [place], [address]. tel:[phone] OFFICE/OUTPA TIENT VISIT, [facility], [address], [place], [place], [address], [place] tel:[phone] [facility] chest pain (chief complaint) Chest Pain, UnspecifiedPleuris y without mention of effusion or current tuberculosis 2 Benji Valdovinos. [address], [place], [place], [address] , [place]. tel:[phone] Referring Provider: Joel Terry [address], [place], [place], [address]. tel:[phone] OFFICE/OUTPA TIENT VISIT, [facility], [address], [place], [place], [address], [place] tel:[phone] [facility] URI (chief complaint) Acute upper respiratory infections of other multiple sites 2 Benji Valdovinos. [address], [place], [place], [address] , [place]. tel:[phone] Referring Provider: Joel Terry [address], [place], [place], [address]. tel:[phone] Family History Family Member Type Diagnosis Age At Onset Father Problem (finding) Hyperlipidemia Brother Problem (finding) Alive and well Mother Problem (finding) Alive and well Payers Payer name Insurance type Covered republican ID Authoriza tion(s) No Information Social History [...] Education Related to Dietary Surveillance and Counseling Increase physical activity Relat ed to Encounter for general adult medical exam w abnormal findings Weight management Related to Enc ounter for general adult medical exam w abnormal findings Prescribed Diet Educ ation/Lifestyle Education Regarding Diet Related to Dietary Surveillance and Counseling Decrease caloric intake Related to Dietary surveillance counseling Dietary counseling Related to Di etary surveillance counseling Decrease caloric intake Related to Dietary surveillance counseling Dietary counseling Related to Di etary surveillance counseling adequate rest and fluid Related to Acute upper respiratory infections of other multip Assessments Type Assessment Date No Information
--- NOTE | 2024-12-01 18:22 | ED_ITS ---
HPI - URI/Sore Throat General Chief Complaint: Upper Respiratory Infection Stated Complaint: sore throat, fever, cough, ear pain Time Seen by Provider: 12/01/24 18:22 Source: patient Mode of arrival: ambulatory Limitations: no limitations History of Present Illness HPI Narrative: Larry is a 44-year-old female patient presenting to the clinic today with complaints of fever highest 101.8F, productive cough yellow/green phlegm, headache, sinus pain, nasal congestion, sore throat, and ear pain x1 day. 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 Has taken DayQuil, NyQuil and ibuprofen for her symptoms. Related Data Home Medications ?Medication ?Instructions ?Recorded ?Confirmed ?Last Taken ?Type No Home Medications 12/01/24 12/01/24 U nknown History Allergies Allergy/AdvReac Type Severity Reaction Status Date / Time No Known Allergies Allergy Verified 12/01/24 18:33 Review of Systems Review of Systems: Pertinent positives per HPI. Patient denies any rash, visual changes, dizziness, shortness of breath, chest pain, palpitations, nausea, vomiting, diarrhea, constipation, abdominal pain, or any urinary issues. [facility] Past Medical History Medical History (Updated 12/01/24 @ 18:47 by David Treviño APRN) History of keloid of skin History of pulmonary embolism 2006 Family History Family History Father Hypertension Mother Cerebrovascular accident Social History Social History Smoking status: Never smoker Alcohol intake: current Substance use: never Comments At the time of my signature, I reviewed and agree with the nursing past medical, surgical, social, and family history. There is no relevant family history pertinent to the patient complaint. Exam Narrative: General: Well-developed, well nourished, acutely ill-appearing Head: Normocephalic, atraumatic Eyes: Pupils equally round and reactive to light bilaterally, EOM intact, sclera and conjunctive clear, no discharge, lids normal Ears: TMs intact and congested, ear canals clear, no drainage, grossly hearing normal. Nose: Nares patent, clear nasal discharge, mild inflammation, no sinus tenderness. Mouth: Oral pharynx red without lesions or masses, good dentition, MMM. Postnasal drip Neck: Supple, trachea midline, no enlargement of anterior or posterior cervical nodes, no thyroid masses or goiter palpable. Cardio: Regular rate and rhythm, s1 and s2 normal, no murmur appreciated. Resp: Clear to auscultation bilaterally, no rhonchi, rales, wheezing or rubs Course Course Emergency Course: Portions of this record may have been created with voice recognition software. Level of Care: Express Care Visit Vital Signs Vital signs: Vital Signs Temperature 37.9 C H 12/01/24 18:33 Pulse Rate 114 H 12/01/24 18:33 Respiratory Rate 16 12/01/24 18:33 Blood Pressure 145/73 H 12/01/24 18:33 Pulse Oximetry 96 12/01/24 18:33 Oxygen Delivery Room Air 12/01/24 18:33 Temperature 37.9 C H 12/01/24 18:33 Pulse Rate 114 H 12/01/24 18:33 Respiratory Rate 16 12/01/24 18:33 Blood Pressure 145/73 H 12/01/24 18:33 Pulse Oximetry 96 12/01/24 18:33 Oxygen Delivery Room Air 12/01/24 18:33 Vital signs reviewed MDM - URI/Sore Throat MDM Narrative Medical decision making narrative: At the time of visit patient is resting comfortably on the exam table. Patient appears to be nontoxic. Complaints of fever highest 101.8F, productive cough yellow/green phlegm, headache, sinus pain, nasal congestion, sore throat, and ear pain x1 day. 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 COVID, flu, and strep test were ordered. On exam patient has clear nasal congestion, sinus pressure, postnasal drip, lung sounds are clear and heart rate slightly tachycardic but regular. Labs: COVID, influenza, and strep test were performed. All testing was perfor med and negative in the clinic today. We will send strep for culture. Plan: I suspect patient has URI/pharyngitis/viral syndrome. Supportive measures were discussed with the patient and they voiced understanding discharge instructions and agrees to treatment plan. Return precautions reviewed Differential Diagnosis Differential diagnosis: Likely upper respiratory infection, otitis media, sinusitis, viral infection, bronchitis, influenza, pharyngitis and other (COVID) Lab Data Labs: Lab Results 12/01/24 Range/Units 18:44 POC Grp A Strep Screen Negative (Negative) Discharge Plan Discharge Clinical Impression: Viral infection Upper respiratory infection Qualifiers: URI type: unspecified URI Qualified Code(s): J06.9 - Acute upper respiratory infection, unspecified Pharyngitis Qualifiers: Pharyngitis/tonsillitis etiology: unspecified etiology Qualified Code(s): J02.9 - Acute pharyngitis, unspecified Patient Disposition: Home Condition: Stable Instructions: Antibiotic Form, Pharyngitis (ED), Upper Respiratory Infection (ED), Viral Syndrome (ED) Additional Instructions: COVID, influenza, and strep test were all negative in the clinic today. We will send strep for culture. Take prescription medications only as prescribed Increase fluids and stay well hydrated May take Tylenol or motrin as directed on bottle for pain/fever May use Flonase 1 spray in each nare daily May take OTC antihistamines such as Zyrtec or Claritin daily as directed on bottle May apply Vicks vapor rub to chest to open sinuses Sinus rinses for congestion Cepacol spray, cough drops, throat lozenges, warm tea with honey/lemon, gargle salt water to soothe throat BRAT diet for diarrhea Clear liquids x 24 hours then advance as tolerated for nausea/vomiting Go to the ED if you develop a worsening in your condition- high fever not controlled by Tylenol or Motrin, dehydration, weakness, lethargy, shortness of breath, or chest pain. Follow up with your PCP in 3-5 days if symptoms persist. Patient Language: Polish Prescriptions: No Action No Home Medications Follow-up/Referrals: UNKNOWN,DOCTOR [Non-Staff] Quality NIHSS Nursing Documentation ED NIHSS nursing documentation: reviewed/agree
--- OUTSIDE RECORDS SUMMARY | 2024-12-01 18:23 | XMS_ITS | Clinical Summary ---
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 Gender Identity Not on file Sexual Orientation Not on file Plan of Treatment Health Maintenance Due Date Last Done Comments Hepatitis C Virus (HCV) Screening 1979 TdaP Immunization 1979 Hepatitis B Immunization (1 of 3 - 19+ 3-dose series) 11/05/1998 Pap Smear 11/05/2000 Human Papillomavirus (HPV) Immunization (1 - 3-dose SCDM series) 11/05/2006 Cervical Cancer Screening (CCS) 11/05/2009 HPV/Cotest 11/05/2009 SARS-COV-2 Immunization ( season) 2023 Cologuard 11/05/2024 Colonoscopy 11/05/2024 Colorectal Cancer Screening 11/05/2024 Immunochemical Fecal Occult Blood 11/05/2024 Influenza Immunization (#1) 2024 Respiratory Syncytial Virus (RSV) Immunization (Adult) (1 - 1-dose 75+ series) 11/05/2054 Meningococcal Immunization (ACWY) Aged Out No longer eligible based on patient's age to complete this topic Pneumococcal Immunization Combined Aged Out No longer eligible based on patient's age to complete this topic Rotavirus Immunization Aged Out No lo nger eligible based on patient's age to complete this topic
--- OUTSIDE RECORDS SUMMARY | 2024-12-01 18:25 | XMS_ITS | Clinical Summary ---
Author Organization [facility] Address [address] [place] [address] Care Team Providers Care Nursing Program Manager Name Role Phone Unavailable Primary Care Provider Unavailabl e Source Comments [facility],non-owned Affiliates and Associated Physician Practices is amultiple site organization consisting of ambulatory clinics and hospital sitesin [place], [place], [place] and [place]. This disclosure is being madepursuant to the Care Everywhere program and may not contain all information available regarding this patient. Last updated 17.[facility] Allergies No known active allergies Medications * Be aware that medications may not be up to date on this document. Always verify current medications with the patient. No known medications Social History Tobacco Use Types Packs/Day Years Used Date Smoking Tobacco: Never Smokeless Tobacco: Never Comments No Sex and Gender Information Value Date Recorded Sex Assigned at Not on file Legal Sex Female 4:52 PM CDT Gender Identity Not on file Sexual Orientation Not on file Last Filed Vital Signs Vital Sign Reading Time Taken Comments Blood Pressure 116/78 06/16/2018 3:23 PM CDT Pulse 100 06/16/2018 3:19 PM CDT Temperature 36.9 C (98.4 F) 06/16/2018 3:19 PM CDT Respiratory Rate 16 06/16/2018 3:19 PM CDT Oxygen Saturation 98% 06/16/2018 3:19 PM CDT Inhaled Oxygen Concentration - - Weight 77.1 kg (170 lb) 06/16/2018 3:19 PM CDT Height 167.6 cm (5' 6) 06/16/2018 3:19 PM CDT Body Mass Index 27.44 06/16/2018 3:19 PM CDT Plan of Treatment Health Maintenance Due Date Last Done Comments GAMA (AGES 45-75) - COL ON CA SCREENING 1979 COLON MONITORING 1979 COLONOSCOPY - COLON CA SCREENING 1979 CT COLONOGRAPHY - COLON CA SCREENING 1979 Colorectal Cancer Screening 1979 FIT - COLON CA SCREENING 1979 FLEX SIG - COLON CA SCREENING 1979 LIPID TESTING 1979 MAMMOGRAM 1979 HIV SCREENING 11/05/1994 HEPATITIS C SCREENING 11/01/1997 DTAP/TDAP/TD VACCINES (1 - Tdap) 11/05/1998 HEPATITIS B VACCINE (1 of 3 - 19+ 3-dose series) 11/05/1998 HPV VACCINE (1 - 3-dose SCDM series) 11/05/2006 COVID-19 VACCINE (1 - 2023-2 5 season) 2023 DEPRESSION SCREENING 04/05/2024 INFLUENZA VACCINE (#1) 2024 ZOSTER VACCINE (1 of 2) 11/05/2029 HIB VACCINE Aged Out No longer eligi ble based on patient's age to complete this topic MENINGOCOCCAL (Group B) VACC INE SHARED DECISION-MAKING Aged Out No longer eligibl e based on patient's age to complete this topic MENINGOCOCCAL GROUPS A/C/Y/W VACCINE Aged Out No longer eligible b ased on patient's age to complete this topic PNEUMOCOCCAL VACCINE Aged Out No long er eligible based on patient's age to complete this topic Insurance [facility], 1928–1983
[2024-12-01 18:33] VITALS: BP 145/73; PULSE 114; RESP 16; TEMP 37.9; O2SAT 96
[2024-12-01 18:46] LABS: EDSTREPNEGPOS1 Negative (Negative)
[2024-12-01 18:50] LABS: EDCOVIDSCREEN Negative (Negative); EDINFLUASCREEN Negative (Negative); EDINFLUBSCREEN Negative (Negative)
== END 2024-12-01 18:50 | disposition home or self-care (01) ==
PROVIDERS: Emergency Provider Nurse Practitioner Family
DX: J06.9 Acute upper respiratory infection, unspecified (principal); B34.9 Viral infection, unspecified; Z20.822 Contact with and (suspected) exposure to COVID-19
CPT/HCPCS: 87081; 87426; 87804; 87880; 99213; G0463